=== PATIENT | female | born 1940 | race Caucasian/White ===

== ENCOUNTER 2017-09-23 10:00 | Emergency (ER) | payer MEDICARE ==
[2017-09-23 10:14] VITALS: TEMP 98.8
[2017-09-23] MEDS ORDERED: Albuterol-Ipratrop 3 mg / 0.5 (3 ml) UD INH STA ×3 (10:58→11:00)
[2017-09-23] MEDS ORDERED: Albuterol-Ipratrop 3 mg / 0.5 (3 ml) UD ONE ×2 (11:22→11:35)
[2017-09-23 11:26] LABS: BASO # 0.1 K/uL (0.0-0.2); BASO % 1.1 % (0.0-2.0); EOS # 0.2 K/uL (0.0-0.7); EOS % 3.6 % (0.0-4.0); HEMOGLOBIN 12.2 g/dL (12.0-16.0); LYMPH # 0.9 K/uL (1.0-4.3); LYMPH % 15.1 % (20.0-40.0); MEAN CORPUSCULAR HEMOGLOBIN 27.8 pg (27.0-31.0); MEAN CORPUSCULAR HGB CONC 32.1 g/dL (33.0-37.0); MONO # 0.6 K/uL (0.0-0.8); MONO % 9.7 % (0.0-10.0); NEUT # 4.3 K/uL (1.8-7.0); NEUT % 70.5 % (50.0-75.0); RBC 4.39 Mil/uL (3.80-5.20); WHITE BLOOD COUNT 6.1 K/uL (4.8-10.8)
[2017-09-23 11:29] VITALS: RESP 18
[2017-09-23 11:31] LABS: MEAN CELL VOLUME 86.7 fl (81.0-99.0)
[2017-09-23 11:39] LABS: BLOOD UREA NITROGEN 10 mg/dl (7-17); CALCIUM 9.4 mg/dL (8.4-10.2); GFR AFRICAN-AMERICAN > 60; GFR NON-AFRICAN AMERICAN > 60
[2017-09-23 11:49] LABS: B-TYPE NATRIURETIC PEPTIDE 1830 pg/ml (0-900)
--- NOTE | 2017-09-23 12:03 | ED PDOC ---
HPI: SOB/CHF/COPD Time Seen by Provider: 09/23/17 10:47 Chief Complaint (Nursing): Shortness Of Breath Chief Complaint (Provider): Cough, Shortness of Breath History Per: Patient History/Exam Limitations: no limitations Onset/Duration Of Symptoms: Days (x 3 weeks) Current Symptoms Are (Timing): Still Present Additional Complaint(s): Rin is a 77 y/o female with a history of asthma who presents to the ED c/o cough and shortness of breath for the past 3 weeks. Patient has been using proventil with no relief and has not seen her doctor. She tried to see him today but he was not available. She admits to chest pain when coughing that radiates to her back but denies fever or productive cough. PMD: Trent Garcia Past Medical History Reviewed: Historical Data, Nursing Documentation, Vital Signs Vital Signs: Last Vital Signs Temp 98.8 F 09/23/17 10:12 Pulse 84 09/23/17 10:30 Resp 18 09/23/17 11:28 BP 178/75 H 09/23/17 10:30 Pulse Ox 99 09/23/17 14:03 - Medical History PMH: Asthma, HTN - Surgical History Surgical History: No Surg Hx - Family History Family History: States: Unknown Family Hx - Immunization History Hx Influenza Vaccination: No - Home Medications Home Medications: Ambulatory Orders Medication Instructions Recorded Albuterol Sulfate [Proventil Hfa] 2 puff IH Q4H PRN #1 unit 09/23/17 predniSONE [predniSONE Tab] 40 mg PO DAILY #10 tab 09/23/17 - Allergies Allergies/Adverse Reactions: Allergies Allergy/AdvReac Type Severity Reaction Status Date / Time No Known Allergies Allergy Verified 09/23/17 10:12 Review of Systems ROS Statement: Except As Marked, All Systems Reviewed And Found Negative Constitutional: Negative for: Fever, Chills Respiratory: Positive for: Cough (nonproducti), Shortness of Breath Gastrointestinal: Negative for: Nausea, Vomiting Physical Exam - Reviewed Nursing Documentation Reviewed: Yes Vital Signs Reviewed: Yes - Physical Exam Appears: Positive for: No Acute Distress Skin: Negative for: Rash Respiratory: Positive for: Decreased Breath Sounds (b/l), Wheezing, Other ( prolonged expiratory phase) Gastrointestinal/Abdominal: Positive for: Soft. Negative for: Tenderness Extremity: Negative for: Swelling Neurologic/Psych: Positive for: Alert, Oriented - Laboratory Results Result Diagrams: 09/23/17 11:20 09/23/17 11:20 - ECG O2 Sat by Pulse Oximetry: 99 (RA) Pulse Ox Interpretation: Normal - Radiology X-Ray: Viewed By Me, Read By Radiologist X-Ray Interpretation: No Acute Disease - Progress Re-evaluation Time: 14:05 Condition: Re-examined (good air entry. no wheezing or rales), Improved Medical Decision Making Medical Decision Making: Time: 10:58 Initial Impression: Exacerbation of asthma; rule out pneumonia Initial Plan: --EKG --BNP --BMP --CBC --Chest XR --Albuterol --SOLU-Medrol Time: 12:25 CHEST XR FINDINGS: LUNGS: No peripheral consolidation. The left hilar soft tissues appear normal. There is left infra hilar peribronchial thickening suggested some inflammatory and/or atelectatic changes here considerations. The right hilar soft tissues are mildly increased since the prior exam right perihilar inflammatory changes are consistent with this. Some contiguous small patchy infiltrates here right perihilar also needed be considered. Concomitant minimal pulmonary venous congestion not excluded PLEURA: No significant pleural effusion identified. No pneumothorax apparent. CARDIOVASCULAR: Mild cardiomegaly. Minimal pulmonary venous congestion possible. OSSEOUS STRUCTURES: Thoracic spondylosis VISUALIZED UPPER ABDOMEN: Normal. OTHER FINDINGS: None. IMPRESSION: Mild increased soft tissue prominence of the right central hilar soft tissues. A patchy infiltrate here is 1 consideration. The left infrahilar markings suggest interval peribronchial thickening- inflammatory/ peribronchial thickening compatible with this. Cardiomegaly -concomitant central pulmonary mild venous congestion also possible. No pleural effusions. No lobar atelectasis. Scribe Attestation: Documented by Gaurang Valentino, acting as a scribe for Serena Holman MD Provider Scribe Attestation: All medical record entries made by the Scribe were at my direction and personally dictated by me. I have reviewed the chart and agree that the record accurately reflects my personal performance of the history, physical exam, medical decision making, and the department course for this patient. I have also personally directed, reviewed, and agree with the discharge instructions and disposition. Disposition - Clinical Impression Clinical Impression: Asthma exacerbation - Patient ED Disposition Is Patient to be Admitted: No Doctor Will See Patient In The: Office Counseled Patient/Family Regarding: Diagnosis, Need For Followup, Rx Given - Disposition Referrals: Trent Garcia MD [Family Provider] - [facility] [place] [Outside] Disposition: Routine/Home Disposition Time: 13:45 Condition: IMPROVED Prescriptions: Albuterol Sulfate [Proventil Hfa] 2 puff IH Q4H PRN #1 unit PRN Reason: Cough predniSONE [predniSONE Tab] 40 mg PO DAILY #10 tab Instructions: Asthma (ED) Forms: [facility] (Setswana) Print Language: TAIWANESE - POA Present On Arrival: None
--- NOTE | 2017-09-23 12:26 | RAD ---
HISTORY: dyspnea x3 weeks, asthma COMPARISON: 05/08/2011 TECHNIQUE: Chest PA and lateral FINDINGS: LUNGS: No peripheral consolidation. The left hilar soft tissues appear normal. There is left infra hilar peribronchial thickening suggested some inflammatory and/or atelectatic changes here considerations. The right hilar soft tissues are mildly increased since the prior exam right perihilar inflammatory changes are consistent with this. Some contiguous small patchy infiltrates here right perihilar also needed be considered. Concomitant minimal pulmonary venous congestion not excluded PLEURA: No significant pleural effusion identified. No pneumothorax apparent. CARDIOVASCULAR: Mild cardiomegaly. Minimal pulmonary venous congestion possible. OSSEOUS STRUCTURES: Thoracic spondylosis VISUALIZED UPPER ABDOMEN: Normal. OTHER FINDINGS: None. IMPRESSION: Mild increased soft tissue prominence of the right central hilar soft tissues. A patchy infiltrate here is 1 consideration. The left infrahilar markings suggest interval peribronchial thickening- inflammatory/ peribronchial thickening compatible with this. Cardiomegaly -concomitant central pulmonary mild venous congestion also possible. No pleural effusions. No lobar atelectasis.
[2017-09-23 16:07] VITALS: PULSE 69; O2SAT 95
[2017-09-23 17:37] VITALS: BP 188/90
--- NOTE | 2017-09-25 18:40 | CARD ---
APPROVED REPORT EKG Measurement Heart [id number] <Conclusion> Normal sinus rhythm Septal infarct, age undetermined Abnormal ECG
== END 2017-09-23 17:38 | disposition home or self-care (01) ==
LOC: H.ER 10:00
DX: J45.901 Unspecified asthma with (acute) exacerbation (principal); J44.9 Chronic obstructive pulmonary disease, unspecified; I10 Essential (primary) hypertension
CPT/HCPCS: 71046; 80048; 83880; 85025; 93005; 94150; 94640; 96374; 99284; J2930

== ENCOUNTER 2018-01-28 13:42 | Emergency (ER) | payer MEDICARE ==
[2018-01-28 13:57] VITALS: RESP 18; TEMP 98; O2SAT 98
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
[2018-01-28 19:20] VITALS: BP 151/80; PULSE 82
== END 2018-01-28 19:10 | disposition home or self-care (01) ==
LOC: H.ER 13:42
DX: M25.512 Pain in left shoulder (principal); V43.62XA Car passenger injured in collision with other type car in traffic accident, initial encounter; Y92.410 Unspecified street and highway as the place of occurrence of the external cause; I10 Essential (primary) hypertension; J45.909 Unspecified asthma, uncomplicated